=== PATIENT | female | born 1945 | race Caucasian/White ===

== ENCOUNTER 2019-06-18 08:24 | Emergency (ER) | payer MEDICARE, BC ==
--- OUTSIDE RECORDS SUMMARY | 2019-06-18 08:33 | XMS REPORT | Continuity of Care Document ---
:1945 External Reference #:[id number] Author Name Kaela Lan MD (transmitted by agent of provider Martina Harper) Address [address], [place] [address] Care Team Providers Name Role Phone Dallas Olivares MD - Nephrology Care Team Information Mix House Operator Anaid Quiles MD - Internal Medicine Care Team Information Mix House Operator Kaela Lan MD - Internal Medicine Care Team Information Mix House Operator Problems Active Problems Provider Date Benign essential hypertension Orly Ngo M.D. Onset: 08/03/2012 Peripheral vascular disease Orly Ngo M.D. Onset: 08/03/2012 Atherosclerosis of renal artery Orly Ngo M.D. Onset: 08/03/2012 Essential hypertension Kaela Lan MD Onset: 05/19/2019 Social History Type Date Description Comments Sex Unknown Tobacco Use Start: Unknown End: Former Cigarette Smoker quit about age 56, 1 Unknown pack per week ETOH Use Drinks 1 Alcoholic Beverage Per Week Tobacco Use Start: Unknown End: Patient is a former smoker Unknown Smoking Status Reviewed: 05/19/19 Patient is a former smoker Allergies, Adverse Reactions, Alerts Description No Known Drug Allergies Medications Active Medications SIG Qnty Indications Ordering Provider Date Atorvastatin Calcium 1 by mouth 90tabs Kaela Lan MD 05/19/2019 20mg every night Tablets Lisinopril 1 by mouth 90tabs Kaela Lan MD 05/19/2019 10mg Tablets every day Amlodipine Besylate 1 by mouth 90tabs Kaela Lan MD 05/19/2019 10mg every day Tablets Levothyroxine Sodium 1 by mouth 30tabs Kaela Lan MD 05/19/2019 every day 88mcg Tablets Aspirin 1 tablet once Unknown 81mg daily at night [facility].DArpit History Medications Levothyroxine Sodium 1 by mouth every 90tabs Kaela Lan MD 05/19/2019 - 100mcg day 05/19/2019 Tablets Medications Administered in Office Medication SIG Qnty Indications Ordering Provider Date Rakel Mckeon M.D. 10/04/2007 Injection Rakel Mckeon M.D. 10/04/2007 Injection Rakel Mckeon M.D. 10/19/2006 Injection Rakel Mckeon M.D. 10/19/2006 Injection Immunizations CPT Code Status Date Vaccine Reaction Lot # [id number] Given 05/19/2019 Tdap - No immediate reaction [id number] Tetanus/Diptheria/Acellular Pertussis 22678 Given 03/07/2013 Flu Vaccine Split Virus Preservative Free For Indiv 3Yr Older Vital Signs Date Vital Result Comment 05/19/2019 4:17pm Height 63 inches 5'3" Weight 177.00 lb Heart Rate 60 /min BP Systolic Sitting 162 mmHg manual BP Diastolic Sitting 66 mmHg manual Body Temperature 96.9 F O2 % BldC Oximetry 96 % BMI (Body Mass Index) 31.4 kg/m2 12/27/2012 1:27pm Height 63 inches 5'3" Weight 201.25 lb Heart Rate 44 /min BP Systolic Sitting 152 mmHg right- 150/60 BP Diastolic Sitting 60 mmHg right- 150/60 BMI (Body Mass Index) 35.6 kg/m2 Results Test Acquired Date Facility Test Result H/L Range Note Comprehensive Metabolic 01/14/2019 N2N/CCD Import Sodium 138 135-145 Panel Egfr 57.5 >60 Egfr Non- 47.6 >60 Ast 13 13-39 Alt 12 7-52 Alkaline Phosphatase 103 34-104 Total Bilirubin 0.70 0.2-1.0 Albumin/Globulin Ratio 1.4 1-3 Globulin 2.9 2-4 Albumin 4.0 3.2-5.2 Total Protein 6.9 6.4-8.9 Calcium 8.4 Low 8.6-10.3 BUN/Creatinine Ratio 15.2 8-20 One Over Creatinine 0.89 Creatinine 1.12 High 0.51-0.95 Blood Urea Nitrogen 17 6-24 Glucose 123 High 70-100 Anion Gap 10 2-11 Co2 Carbon Dioxide 20 Low 22-32 Chloride 108 101-111 Potassium 5.3 High 3.5-5.0 Lipid Profile 01/14/2019 N2N/CCD Import LDL Cholesterol 48 HDL Cholesterol 32.8 Cholesterol 100 Triglycerides 94 Liver Panel 01/14/2019 N2N/CCD Import Indirect Bilirubin 0.5 0.3-1.0 Direct Bilirubin 0.20 High 0.03-0.18 Phosphorus 01/14/2019 N2N/CCD Import Phosphorus 3.0 2.5-5.0 Magnesium 01/14/2019 N2N/CCD Import Magnesium 1.1 Low 1.9-2.7 T4 01/14/2019 N2N/CCD Import T4, Total 11.24 6.09-12.23 TSH (Thyroid 01/14/2019 N2N/CCD Import TSH (Thyroid 0.25 Low 0.34-5.60 Stimulating Horm) Stimulating Horm) Procedures Description No Information Available Medical Devices Description No Information Available Encounters Description No Information Available Assessments Date Code Description Provider 05/19/2019 E03.9 Hypothyroidism, unspecified Kaela Lan MD 05/19/2019 I10 Essential (primary) hypertension Kaela Lan MD 05/19/2019 E78.5 Hyperlipidemia, unspecified Kaela Lan MD 05/19/2019 Z23 Encounter for immunization Kaela Lan MD Plan of Treatment Future Appointment(s):06/16/2019 10:00 am - Kaela Lan MD at [facility] Internal Medicine - [facility]05/19/2019 - Kaela Lan MDE03.9 Hypothyroidism, unspecifiedComments:I have decreased the dosage of your thyroid medicationPlease get the labs done in 4 [id number] Essential (primary) hypertensionFollow up:F/U 4 xydbpX06.5 Hyperlipidemia, [id number] Encounter for immunization Functional Status Description No Information Available Mental Status Description No Information Available Referrals Description No Information Available
--- OUTSIDE RECORDS SUMMARY | 2019-06-18 08:33 | XMS REPORT | Continuity of Care Document ---
:1945 External Reference #:[id number] Author Name Kaela Lan MD (transmitted by agent of provider Martina Harper) Address [address], [place] [address] Care Team Providers Name Role Phone Dlalas Olivares MD - Nephrology Care Team Information Low Heel Builder Anaid Quiles MD - Internal Medicine Care Team Information Low Heel Builder Kaela Lan MD - Internal Medicine Care Team Information Low Heel Builder [phone] Problems Active Problems Provider Date Benign essential hypertension Orly Ngo M.D. Onset: 08/03/2012 Peripheral vascular disease Orly Ngo M.D. Onset: 08/03/2012 Atherosclerosis of renal artery Orly Ngo M.D. Onset: 08/03/2012 Note: Aorto-renal right renal bypass 2002 Renal art angioplasty bilateral 1998 Left common iliac to right Ext. Iliac art bypass Essential hypertension Kaela Lan MD Onset: 05/19/2019 Abdominal aortic aneurysm without rupture Kaela Lan MD Onset: 05/19/2019 Note: 3.8 cm x 3.8 cm ( 2018) Hypothyroidism Kaela Lan MD Onset: 05/19/2019 Hyperlipidemia Kaela Lan MD Onset: 05/19/2019 Social History Type Date Description Comments Sex Unknown Tobacco Use Start: Unknown End: Former Cigarette Smoker quit about age 56, 1 Unknown pack per week ETOH Use Drinks 1 Alcoholic Beverage Per Week Tobacco Use Start: Unknown End: Patient is a former smoker Unknown Smoking Status Reviewed: 06/16/19 Patient is a former smoker Allergies, Adverse Reactions, Alerts Description No Known Drug Allergies Medications Active Medications SIG Qnty Indications Ordering Provider Date Lisinopril 1 by mouth 30tabs Kaela Lan MD 06/16/2019 20mg Tablets every day Atorvastatin Calcium 1 by mouth 90tabs Kaela Lan MD 05/19/2019 20mg every night Tablets Amlodipine Besylate 1 by mouth 90tabs Kaela Lan MD 05/19/2019 10mg every day Tablets Levothyroxine Sodium 1 by mouth 90tabs Kaela Lan MD 05/19/2019 every day 88mcg Tablets Aspirin 1 tablet once Unknown 81mg daily at night Atenolol 1 tablet once 45tabs Orly Hurst, 50mg Tablets daily M.D. History Medications Levothyroxine Sodium 1 by mouth every 90tabs Kaela Lan MD 05/19/2019 - 100mcg day 05/19/2019 Tablets Lisinopril 1 by mouth every 90tabs Kaela Lan MD 05/19/2019 - 10mg Tablets day 06/16/2019 Medications Administered in Office Medication SIG Qnty Indications Ordering Provider Date Rakel Mckeon M.D. 10/04/2007 Injection Rakel Mckeon M.D. 10/04/2007 Injection Rakel Mckeon M.D. 10/19/2006 Injection Rakel Mckeon M.D. 10/19/2006 Injection Immunizations CPT Code Status Date Vaccine Reaction Lot # [id number] Given 05/19/2019 Tdap - No immediate reaction [id number] Tetanus/Diptheria/Acellular Pertussis 14982 Given 03/07/2013 Flu Vaccine Split Virus Preservative Free For Indiv 3Yr Older Vital Signs Date Vital Result Comment 06/16/2019 10:04am Height 63 inches 5'3" Weight 179.00 lb Heart Rate 58 /min BP Systolic Sitting 149 mmHg BP Diastolic Sitting 68 mmHg Body Temperature 97.0 F O2 % BldC Oximetry 98 % BMI (Body Mass Index) 31.7 kg/m2 05/19/2019 4:17pm Height 63 inches 5'3" Weight 177.00 lb Heart Rate 60 /min BP Systolic Sitting 162 mmHg manual BP Diastolic Sitting 66 mmHg manual Body Temperature 96.9 F O2 % BldC Oximetry 96 % BMI (Body Mass Index) 31.4 kg/m2 Results Test Acquired Date Facility Test Result H/L Range Note Laboratory test 06/10/2019 [facility] TSH 0.71 Normal 0.34- 5.[address] (Thyroid mcIU/[place] [address] Stim Horm) [phone] Comp Metabolic 06/10/2019 [facility] Sodium 140 mmol/L Normal 135-[address] [place] [address] [phone] Potassium 4.9 mmol/L Normal 3.5-5.0 Chloride 109 mmol/L Normal 101-111 Co2 Carbon Dioxide 22 mmol/L Normal 22-32 Anion Gap 9 mmol/L Normal 2-11 Glucose 100 mg/dL Normal 70-100 Blood Urea Nitrogen 18 mg/dL Normal 6-24 Creatinine 0.94 mg/dL Normal 0.51-0.95 BUN/Creatinine Ratio 19.1 Normal 8-20 Calcium 8.5 mg/dL Low 8.6-10.3 Total Protein 6.8 g/dL Normal 6.4-8.9 Albumin 4.1 g/dL Normal 3.2-5.2 Globulin 2.7 g/dL Normal 2-4 Albumin/Globulin Ratio 1.5 Normal 1-3 Total Bilirubin 1.00 mg/dL Normal 0.2-1.0 Alkaline Phosphatase 113 U/L High 34-104 Alt 11 U/L Normal 7-52 Ast 12 U/L Low 13-39 Egfr Non- 58.1 >60 Egfr 70.2 >60 1 Lipid Profile 06/10/2019 [facility] Triglycerides 93 mg/dL 2 (Trig/Chol/HDL) [address] [place] [address] [phone] Cholesterol 105 mg/dL 3 HDL Cholesterol 33.5 mg/dL 4 LDL Cholesterol 53 mg/dL 5 1 Because ethnic data is not always readily available, this report includes an eGFR for both -Americans and non- Americans. The National Kidney Disease Education Program (NKDEP) does not endorse the use of the MDRD equation for patients that are not between the ages of 18 and 70, are , have extremes of body size, muscle mass, or nutritional status, or are non- or non-. According to the National Kidney Foundation, irrespective of diagnosis, the stage of the disease is based on the level of kidney function: Stage Description GFR(mL/min/1.73 m(2)) 1 Kidney damage with normal or decreased GFR 90 2 Kidney damage with mild decrease in GFR 60-89 3 Moderate decrease in GFR 30-59 4 Severe decrease in GFR 15-29 5 Kidney failure <15 (or dialysis) 2 Desirable: <150 Borderline High: 150-199 High: 200-499 Very High: >500 3 Desirable: <200 Borderline High: 200-239 High: >239 4 Low: <40 Desirable: 40-60 High: >60 5 Desirable: <100 Near Optimal: 100-129 Borderline High: 130-159 High: 160-189 Very High: >189 Procedures Description No Information Available Medical Devices Description No Information Available Encounters Type Date Location Provider Dx Diagnosis Office Visit 05/19/2019 [facility] Internal Kaela Lan MD E03.9 Hypothyroidism, 4:20p Medicine - [facility] unspecified I10 Essential (primary) hypertension E78.5 Hyperlipidemia, unspecified Z23 Encounter for immunization I70.1 Atherosclerosis of renal artery I71.4 Abdominal aortic aneurysm, without rupture Assessments Date Code Description Provider 06/16/2019 I10 Essential (primary) hypertension Kaela Lan MD 06/16/2019 Z12.31 Encounter for screening mammogram for malignant Kaela Lan MD neoplasm of breast 06/16/2019 Z12.11 Encounter for screening for malignant neoplasm of Kaela Lan MD colon 06/16/2019 E03.9 Hypothyroidism, unspecified Kaela Lan MD 05/19/2019 E03.9 Hypothyroidism, unspecified Kaela Lan MD 05/19/2019 I10 Essential (primary) hypertension Kaela Lan MD 05/19/2019 E78.5 Hyperlipidemia, unspecified Kaela Lan MD 05/19/2019 Z23 Encounter for immunization Kaela Lan MD 05/19/2019 I70.1 Atherosclerosis of renal artery Kaela Lan MD 05/19/2019 I71.4 Abdominal aortic aneurysm, without rupture Kaela Lan MD Plan of Treatment Future Appointment(s):07/14/2019 10:00 am - [facility] Kaela Lan MDI10 Essential (primary) hypertensionComments:BP still running high. I will increase lisinopril to 20 mgContinue the atenolol 50 mg and dootexsmjv25 mgFollow up:F/U 4 hsmcjS31.31 Encounter for screening mammogram for malignant neoplasm of breastComments:Pt ssrjiklhN90.11 Encounter for screening for malignant neoplasm of colonComments: Pt aooopgrvK57.9 Hypothyroidism, unspecifiedComments:Stay on the same dose of levothyroxine . Your thyroid test was normal. I have sent in the refill Functional Status Description No Information Available Mental Status Description No Information Available Referrals Description No Information Available
[2019-06-18 08:47] VITALS: BP 154/76
--- NOTE | 2019-06-18 08:55 | UC ---
Lower Extremity/Ankle HPI - HPI Summary HPI Summary: Pain with palpation and ambulation dorsum right foot and first mtp joint for the last 4 days. Two days prior tried new shoes and was standing for 3 hours. Condition improved 2 days ago, now worse. Pain with standing and walking. Mild swelling and erythema over the mid foot, dorsum. - History of Current Complaint Stated Complaint: FOOT PAIN Time Seen by Provider: 06/18/19 08:29 Hx Obtained From: Patient ?: No Onset/Duration: Gradual Onset, Lasting Days - began 4 days ago; now notes swelling; uncomfortable to walk Severity Initially: Mild Severity Currently: Moderate Pain Intensity: 5 Aggravating Factor(s): Standing, Ambulation Alleviating Factor(s): Rest Able to Bear Weight: Yes - Risk Factors Gout Risk Factors: Age Over 40 - Allergies/Home Medications Allergies/Adverse Reactions: Allergies Allergy/AdvReac Type Severity Reaction Status Date / Time No Known Allergies Allergy Verified 06/18/19 08:47 Home Medications: Home Medications Aspirin 81 mg CHEW TAB* [Aspirin Low Dose TAB*] 81 mg PO BEDTIME 06/18/19 [ History Confirmed 06/18/19] Atenolol TAB* [Tenormin TAB* 50 MG] 50 mg PO DAILY 06/18/19 [History Confirmed 06/18/19] Atorvastatin* [Lipitor*] 20 mg PO DAILY 06/18/19 [History Confirmed 06/18/19] Levothyroxine TAB* [Synthroid TAB*] 88 mcg PO DAILY 06/18/19 [History Confirmed 06/18/19] Lisinopril TAB* [Prinivil TAB*] 10 mg PO BID 06/18/19 [History Confirmed ] amLODIPine TAB* [Norvasc 5 mg TAB*] 10 mg PO DAILY 06/18/19 [History Confirmed 06/18/19] PMH/Surg Hx/FS Hx/Imm Hx Previously Healthy: No Endocrine History: Thyroid Disease, Hypothyroidism Cardiovascular History: Hypertension, Other - one kidney, right; 2002 bypass from aorta to right kidney - Surgical History Surgical History: Yes Surgery Procedure, Year, and Place: bypass aorta to kidney - Family History Known Family History: Positive: None - Social History Occupation: Employed Part-time - home Lives: Alone Alcohol Use: Occasionally Substance Use Type: None Smoking Status (MU): Never Smoked Tobacco Review of Systems All Other Systems Reviewed And Are Negative: Yes Constitutional: Positive: Negative Respiratory: Positive: Negative Cardiovascular: Positive: Negative Gastrointestinal: Positive: Negative Genitourinary: Positive: Negative Musculoskeletal: Positive: Edema - dorsum right foot, Other: - pain with palpation and ambulation dorsum right foot and first mtp joint; erythema dorsum. Negative: Decreased ROM Is Patient Immunocompromised?: No Physical Exam - Summary Physical Exam Summary: Appearance: The patient is well-appearing, is in no pain or distress, and is well-nourished. Eyes: Conjunctiva are clear. Pupils are equal and reactive to light and accommodation. Extra ocular muscle movement is intact. ENT: The hearing is grossly normal, the pharynx is normal, and the TMs are normal. There is no muffled or hoarse voice. No stridor. Neck: The neck is supple and there is no lymphadenopathy. Respiratory: The chest is non-tender to palpation and without crepitus. The lungs are clear, there are normal breath sounds, and there is no respiratory distress. No wheezes, rales or rhonchi. Cardiovascular: Heart sounds reveal a regular rate and rhythm. There are no clicks, rubs or murmurs. There are no carotid bruits or thrills. Circulation is grossly intact. Abdomen: The abdomen is soft and nontender. There is no organomegaly. Bowel sounds are present and within normal limits. No point tenderness at McBurneys point. No CVA tenderness. Musculoskeletal: Strength is intact. The patient moves all extremities. Right foot: mild soft tissue swelling over the mid foot, dorsum; mild erythema; pain to palpation; no ascending lymphangitis or cellulitis; also painful to palpation over the first MTP joint; no redness over the joint. No calf redness c /w thrombophlebitis. Neurological: The patient is alert. Motor and sensory are examination grossly intact. Speech is normal. Psychological: The patient displays age appropriate behavior, and is conversant. GCS=15. Skin: Negative for rashes. Triage Information Reviewed: Yes Appearance: Pain Distress - with standing and walking Vital Signs: Initial Vital Signs Temp 97.7 F 06/18/19 08:41 Pulse 60 06/18/19 08:41 Resp 16 06/18/19 08:41 BP 154/76 06/18/19 08:41 Pulse Ox 100 06/18/19 08:41 Lower Extremity Course/Dx - Course Course Of Treatment: Pain with palpation and ambulation dorsum right foot and first mtp joint for the last 4 days. Two days prior tried new shoes and was standing for 3 hours. Condition improved 2 days ago, now worse. Pain with standing and walking. Mild swelling and erythema over the mid foot, dorsum. X ray negative for fracture. Patient complains of pain with palpation dorsum; mild erythema dorsum; also pain over first MTP joint. No ascending cellulitis or lymphangitis. Possible tendonitis, gout although the joint isn't red and swollen. Cellulitis can't be ruled out. I will start her on Keflex, elevation, warm soaks and follow up. Because of her kidney condition, she will use acetaminophen rather than a NSAID. - Differential Dx/Diagnosis Differential Diagnosis/HQI/PQRI: Arthritis, Cellulitis, Gout, Osteomyelitis, Sprain, Strain, Tendonitis Provider Diagnosis: Cellulitis Discharge ED - Sign-Out/Discharge Documenting (check all that apply): Patient Departure All imaging exams completed and their final reports reviewed: Yes - Discharge Plan Condition: Stable Disposition: HOME Referrals: Kaela Lan MD [Primary Care Provider] - Additional Instructions: WE DISCUSSED: PLEASE SEEK CARE AT THE EMERGENCY DEPARTMENT IF SYMPTOMS WORSEN OR IF NEW SYMPTOMS DEVELOP. FOLLOW UP WITH YOUR PRIMARY CARE PHYSICIAN IF CONDITION CONTINUES BEYOND 3 DAYS WITHOUT IMPROVEMENT. YOUR DIAGNOSIS IS: skin redness and swelling; possible SKIN INFECTION YOUR PRESCRIPTION RECOMMENDATION IS: KEFLEX, 3 TIMES A DAY FOR 10 DAYS OTHER INSTRUCTIONS: Hypertension Discharge Instructions: Your blood pressure reading today was high, indicating HYPERTENSION. Follow-up with your primary care provider within 4 weeks for blood pressure check and appropriate recommendations and treatment, as needed. FOR PAIN AND/OR SLEEP: For pain: acetaminophen (Tylenol and other brand names) 500mg - 1000mg every 8 hours. Warm water soaks for 10 minutes 4-6 times a day; crutches for comfort. You may have a inflammation of your tendons or joints, but because of your pain and skin redness, it's also possible you have the beginning of a skin infection. Use soaks, crutches and antibiotic pill, 3 times a day. Elevate your foot when sitting. Follow up with your doctor or here in 3-5 days. Recheck sooner for any increased pain, swelling, redness or red lines going up your leg. - Billing Disposition and Condition Condition: STABLE Disposition: Home
== END 2019-06-18 09:54 | disposition home or self-care (01) ==
LOC: UCEAST 08:24
DX: L03.115 Cellulitis of right lower limb (principal); E03.9 Hypothyroidism, unspecified; I10 Essential (primary) hypertension; Z79.82 Long term (current) use of aspirin; Z79.890 Hormone replacement therapy; Z79.899 Other long term (current) drug therapy
CPT/HCPCS: 99212; G0463